=== PATIENT | male | born 1955 | race Caucasian/White ===

== ENCOUNTER 2019-12-18 11:08 | Inpatient (IN) | payer OTHER, MEDICARE ==
[2019-12-18 12:35] LABS: Absolute Lymphocytes (CBC) 1.4 K/uL (0.7-4.9); Basophils % 0.8 % (0-1.3); Hematocrit 17.3 % (39.6-49.0); Lymphocytes % 25.7 % (15.3-44.8); MPV 8.9 fL (7.6-11.3); RBC Red Blood Cell Count 1.71 M/uL (4.33-5.43)
[2019-12-18 12:37] LABS: Protime INR 0.94
[2019-12-18 12:44] LABS: Albumin 2.7 g/dL (3.4-5.0); Bilirubin Direct 0.1 mg/dL (0-0.2); Bilirubin Total 0.4 mg/dL (0.2-1.0); Potassium 3.9 mmol/L (3.5-5.1); Protein, Total 5.4 g/dL (6.4-8.2)
[2019-12-18] MEDS ORDERED: PANTOPRAZOLE 40 MG INJ ONE (13:07)
[2019-12-18] MEDS ORDERED: WATER FOR INJ,STERILE 20 ML ONE (13:08)
[2019-12-18] MEDS ORDERED: NA CHLORIDE 0.9% 250 ML ONE ×2 (13:08→22:43)
--- NOTE | 2019-12-18 13:09 | EDPHYS ---
Physician Documentation [facility] Name: Evan Cruz Age: 64 yrs Sex: Male : 1955 Arrival Date: 12/18/2019 Time: 11:10 Bed 15 Private MD: ED Physician Robert Baxter HPI: 12/17 12:55 This 64 yrs old Male presents to ER via Ambulatory with complaints of blood mich transfusion. 12:55 The patient presents to the emergency department with rectal bleeding, melena. Onset: mich The symptoms/episode began/occurred. Abdominal pain: none is appreciated. Modifying factors: The symptoms are alleviated by nothing, the symptoms are aggravated by nothing. weak, dizzy, black stools. Associated signs and symptoms: Pertinent positives: shortness of breath, near-syncope. Onset: The symptoms/episode began/occurred 1 week(s) ago. Severity of symptoms: At their worst the symptoms were moderate in the emergency department the symptoms are unchanged. The patient has not experienced similar symptoms in the past. Historical: - Allergies: 11:34 No Known Allergies; ca1 - Home Meds: 11:34 None [Active]; ca1 - PMHx: 11:34 None; ca1 - PSHx: 11:34 None; ca1 - Immunization history:: Adult Immunizations up to date. - Social history:: Smoking status: Patient denies any tobacco usage or history of. - Family history:: not pertinent. ROS: 12:55 Constitutional: Negative for fever, chills, and weight loss, ENT: Negative for injury, mich pain, and discharge, Neck: Negative for injury, pain, and swelling, Cardiovascular: Negative for chest pain, palpitations, and edema, Respiratory: Negative for shortness of breath, cough, wheezing, and pleuritic chest pain, Back: Negative for injury and pain, : Negative for injury, bleeding, discharge, and swelling, MS/Extremity: Negative for injury and deformity, Skin: Negative for injury, rash, and discoloration, Neuro: Negative for headache, weakness, numbness, tingling, and seizure, Psych: Negative for depression, anxiety, suicide ideation, homicidal ideation, and hallucinations, Allergy/Immunology: Negative for hives, rash, and allergies, Endocrine: Negative for neck swelling, polydipsia, polyuria, polyphagia, and marked weight changes, Hematologic/Lymphatic: Negative for swollen nodes, abnormal bleeding, and unusual bruising. 12:55 Eyes: Positive for pale conjunctiva. 12:55 Abdomen/GI: Positive for black/tarry stool. 12:55 Skin: Positive for pallor. 12:55 Neuro: Positive for syncope, weakness. Exam: 12:55 Constitutional: This is a well developed, well nourished patient who is awake, alert, mich and in no acute distress. Head/Face: Normocephalic, atraumatic. ENT: Nares patent. No nasal discharge, no septal abnormalities noted. Tympanic membranes are normal and external auditory canals are clear. Oropharynx with no redness, swelling, or masses, exudates, or evidence of obstruction, uvula midline. Mucous membranes moist. Neck: Trachea midline, no thyromegaly or masses palpated, and no cervical lymphadenopathy. Supple, full range of motion without nuchal rigidity, or vertebral point tenderness. No Meningismus. Chest/axilla: Normal chest wall appearance and motion. Nontender with no deformity. No lesions are appreciated. Cardiovascular: Regular rate and rhythm with a normal S1 and S2. No gallops, murmurs, or rubs. Normal PMI, no JVD. No pulse deficits. Respiratory: Lungs have equal breath sounds bilaterally, clear to auscultation and percussion. No rales, rhonchi or wheezes noted. No increased work of breathing, no retractions or nasal flaring. Back: No spinal tenderness. No costovertebral tenderness. Full range of motion. Male : Normal genitalia with no discharge or lesions. MS/ Extremity: Pulses equal, no cyanosis. Neurovascular intact. Full, normal range of motion. Neuro: Awake and alert, GCS 15, oriented to person, place, time, and situation. Cranial nerves II-XII grossly intact. Motor strength 5/5 in all extremities. Sensory grossly intact. Cerebellar exam normal. Normal gait. Psych: Awake, alert, with orientation to person, place and time. Behavior, mood, and affect are within normal limits. 12:55 Eyes: Conjunctiva: pale. 12:55 Cardiovascular: Rate: normal, Rhythm: regular, Pulses: no pulse deficits are appreciated, Heart sounds: normal, Edema: is not appreciated, JVD: is not appreciated. 12:55 Abdomen/GI: Inspection: abdomen appears normal, Bowel sounds: normal, Palpation: abdomen is soft and non-tender, Rectal exam: Prostate: normal, rectal tone normal, Stool: guaiac positive, black, hemorrhoid(s), are not appreciated, mass, is not appreciated, swelling, is not appreciated, tenderness, is not appreciated, fecal impaction, is not appreciated, Liver: no appreciated palpable abnormalities. Vital Signs: 11:30 BP 121 / 75; Pulse 89; Resp 17 S; Temp 98.5(TE); Pulse Ox 100% on R/A; Weight 91.63 kg ca1 (R); Height 6 ft. 0 in. (182.88 cm) (R); Pain 0/10; 12:15 BP 127 / 73; Pulse 86; Resp 15 S; Pulse Ox 98% on R/A; ca1 13:15 BP 120 / 72; Pulse 79; Resp 16 S; Pulse Ox 97% on R/A; ca1 14:20 BP 118 / 77; Pulse 79; Resp 15 S; Pulse Ox 100% on R/A; ca1 15:12 BP 116 / 71; Pulse 81; Resp 16 S; Pulse Ox 100% on R/A; ca1 16:18 BP 103 / 72; Pulse 75; Resp 15 S; Pulse Ox 100% on R/A; ca1 11:30 Body Mass Index 27.40 (91.63 kg, 182.88 cm) ca1 MDM: 11:21 Patient medically screened. mich 13:02 Differential diagnosis: gastritis, diverticulitis, hemorrhoids, hemorrhagic shock, mich varices. Data reviewed: vital signs, nurses notes, lab test result(s), EKG, radiologic studies, plain films. Data interpreted: telemetry monitor: rate is 89 beats/min, rhythm is regular, Pulse oximetry: on room air is 100 %. Test interpretation: by ED physician or midlevel provider: ECG, plain radiologic studies. Counseling: I had a detailed discussion with the patient and/or guardian regarding: the historical points, exam findings, and any diagnostic results supporting the discharge/admit diagnosis, the presence of at least one elevated blood pressure reading (>120/80) during this emergency department visit, lab results, radiology results, the need for further work-up and treatment in the hospital. Physician consultation: Fran Thomas MD and will see patient in inpatient room. ED course: dw dr thomas, will scope, admit to hospitalist, dr cedeno. 12/17 12:05 Order name: Basic Metabolic Panel; Complete Time: 12:50 [facility] 12/17 12:05 Order name: CBC with Diff; Complete Time: 12:50 [facility] 12/17 12:05 Order name: Hepatic Function; Complete Time: 12:50 ca1 12/17 12:05 Order name: Lipase; Complete Time: 12:50 [facility] 12/17 12:05 Order name: Type And Screen [facility] 12/17 12:05 Order name: Protime (+inr); Complete Time: 12:50 [facility] 12/17 12:05 Order name: Ptt, Activated; Complete Time: 12:50 [facility] 12/17 12:54 Order name: Iron Level [facility] 12/17 12:54 Order name: Retic Count [facility] 12/17 12:54 Order name: Folic Acid,Serum (folate) [facility] 12/17 12:54 Order name: TIBC [facility] 12/17 12:54 Order name: Ferritin [facility] 12/17 13:51 Order name: Packed RBC Leukored [facility] 12/17 14:13 Order name: ABO/RH no charge [facility] 12/17 12:05 Order name: IV Saline Lock; Complete Time: 12:05 [facility] 12/17 12:05 Order name: Labs collected and sent; Complete Time: 12:05 [facility] 12/17 12:05 Order name: EKG; Complete Time: 12:06 [facility] 12/17 12:05 Order name: EKG - Nurse/Tech; Complete Time: 12:05 [facility] 12/17 12:50 Order name: Transfuse; Complete Time: 16:21 [facility] 12/17 12:53 Order name: IV - Large Bore; Complete Time: 12:56 [facility] 12/17 15:29 Order name: COVID-19: admit iw Administered Medications: 13:00 Drug: ProTONIX 80 mg Route: IVP; Site: right antecubital; ca1 14:22 Follow up: Response: No adverse reaction ca1 13:27 Drug: ProTONIX 8 mg/hr Route: IV; Rate: 25 ml/hr; Site: left forearm; ca1 14:22 Follow up: Response: No adverse reaction; IV Status: Infusion continued upon admission ca1 Disposition: 12/18/19 13:08 Hospitalization ordered by Moncho Cedeno for Inpatient Admission. Preliminary diagnosis are Gastrointestinal hemorrhage, unspecified - upper, Anemia, unspecified, Weakness, Syncope and collapse - near. - Bed requested for Telemetry/MedSurg (Inpatient). - Status is Inpatient Admission. ca1 - Condition is Fair. - Problem is new. - Symptoms have improved. Signatures: Dispatcher [employer] EDMS Robert Baxter MD MD cha Thompson, [facility], SADE Calero RN ca1 Corrections: (The following items were deleted from the chart) 16:08 13:08 Hospitalization Ordered by Moncho Cedeno DO for Inpatient Admission. Preliminary ks diagnosis is Gastrointestinal hemorrhage, unspecified - upper; Anemia, unspecified; Weakness; Syncope and collapse - near. Bed requested for Telemetry/MedSurg (Inpatient). Status is Inpatient Admission. Condition is Fair. Problem is new. Symptoms have improved. [facility] 16:55 16:08 12/18/2019 13:08 Hospitalization Ordered by Moncho Cedeno DO for Inpatient ca1 Admission. Preliminary diagnosis is Gastrointestinal hemorrhage, unspecified - upper; Anemia, unspecified; Weakness; Syncope and collapse - near. Bed requested for Telemetry/MedSurg (Inpatient). Status is Inpatient Admission. Condition is Fair. Problem is new. Symptoms have improved. mt
--- NOTE | 2019-12-18 13:09 | ER ---
Nurse's Notes [facility] Name: Evan Cruz Age: 64 yrs Sex: Male : 1955 Arrival Date: 12/18/2019 Time: 11:10 Bed 15 Private MD: Diagnosis: Gastrointestinal hemorrhage, unspecified-upper;Anemia, unspecified;Weakness;Syncope and collapse-near Presentation: 12/17 11:30 Chief complaint: Patient states: Had blood work done about a week ago in [place]. My ca1 doctor says I have low blood levels and is supposed to see a GI doctor for black stools. On Wednesday, I felt chest pains, SOB with exertion and fatigue. Told my doctor and was instructed to come to the ER. At this time, no chest pains, but still very fatigued and easily winded. Reports constipation and black stools x 2 weeks. Coronavirus screen: Proceed with normal triage. Patient denies a cough. Patient denies shortness of breath or difficulty breathing. Patient denies measured and/or subjective temperature greater than 100.4F prior to today's visit. Patient denies travel on a cruise ship or to a country the [facility] currently lists as an affected area. Patient denies contact with known and/or suspected case of COVID-19. Ebola Screen: Patient negative for fever greater than or equal to 101.5 degrees Fahrenheit, and additional compatible Ebola Virus Disease symptoms Patient denies exposure to infectious person. Patient denies travel to an Ebola-affected area in the 21 days before illness onset. No symptoms or risks identified at this time. Initial Sepsis Screen: Does the patient meet any 2 criteria? No. Patient's initial sepsis screen is negative. Does the patient have a suspected source of infection? No. Patient's initial sepsis screen is negative. Risk Assessment: Do you want to hurt yourself or someone else? Patient reports no desire to harm self or others. Onset of symptoms was December 18, 2019. 11:30 Method Of Arrival: Ambulatory ca1 11:30 Acuity: RENU 3 ca1 Triage Assessment: 11:34 General: Appears in no apparent distress. comfortable, Behavior is calm, cooperative, ca1 appropriate for age. Pain: Denies pain. EENT: No signs and/or symptoms were reported regarding the EENT system. Neuro: Level of Consciousness is awake, alert, obeys commands, Oriented to person, place, time, situation. Cardiovascular: Heart tones S1 S2 present Capillary refill < 3 seconds Patient's skin is warm and dry. Respiratory: Airway is patent Respiratory effort is even, unlabored, Respiratory pattern is regular, symmetrical, Breath sounds are clear bilaterally. GI: Abdomen is flat, non-distended, Bowel sounds present X 4 quads. Abd is soft and non tender X 4 quads. Reports constipation, black stools. : No signs and/or symptoms were reported regarding the genitourinary system. Derm: Skin is intact, is healthy with good turgor, Skin is pink, warm \T\ dry. Musculoskeletal: Circulation, motion, and sensation intact. Capillary refill < 3 seconds. Historical: - Allergies: 11:34 No Known Allergies; ca1 - Home Meds: 11:34 None [Active]; ca1 - PMHx: 11:34 None; ca1 - PSHx: 11:34 None; ca1 - Immunization history:: Adult Immunizations up to date. - Social history:: Smoking status: Patient denies any tobacco usage or history of. - Family history:: not pertinent. Screenin:35 Abuse screen: Denies threats or abuse. Denies injuries from another. Nutritional ca1 screening: No deficits noted. Tuberculosis screening: No symptoms or risk factors identified. Fall Risk IV access (20 points). Assessment: 11:35 Reassessment: see triage notes. ca1 12:15 Reassessment: Patient appears in no apparent distress at this time. Patient and/or ca1 family updated on plan of care and expected duration. Pain level reassessed. Patient is alert, oriented x 3, equal unlabored respirations, skin warm/dry/pink. 13:15 Reassessment: Patient appears in no apparent distress at this time. Patient and/or ca1 family updated on plan of care and expected duration. Pain level reassessed. Patient is alert, oriented x 3, equal unlabored respirations, skin warm/dry/pink. 14:20 Reassessment: Patient appears in no apparent distress at this time. Patient and/or ca1 family updated on plan of care and expected duration. Pain level reassessed. Patient is alert, oriented x 3, equal unlabored respirations, skin warm/dry/pink. 15:12 Reassessment: Patient appears in no apparent distress at this time. Patient and/or ca1 family updated on plan of care and expected duration. Pain level reassessed. Patient is alert, oriented x 3, equal unlabored respirations, skin warm/dry/pink. 16:18 Reassessment: Patient appears in no apparent distress at this time. Patient and/or ca1 family updated on plan of care and expected duration. Pain level reassessed. Patient is alert, oriented x 3, equal unlabored respirations, skin warm/dry/pink. 16:18 Reassessment: Called for report. CN to assign pt to Floor RN. Will call back. ca1 Vital Signs: 11:30 BP 121 / 75; Pulse 89; Resp 17 S; Temp 98.5(TE); Pulse Ox 100% on R/A; Weight 91.63 kg ca1 (R); Height 6 ft. 0 in. (182.88 cm) (R); Pain 0/10; 12:15 BP 127 / 73; Pulse 86; Resp 15 S; Pulse Ox 98% on R/A; ca1 13:15 BP 120 / 72; Pulse 79; Resp 16 S; Pulse Ox 97% on R/A; ca1 14:20 BP 118 / 77; Pulse 79; Resp 15 S; Pulse Ox 100% on R/A; ca1 15:12 BP 116 / 71; Pulse 81; Resp 16 S; Pulse Ox 100% on R/A; ca1 16:18 BP 103 / 72; Pulse 75; Resp 15 S; Pulse Ox 100% on R/A; ca1 11:30 Body Mass Index 27.40 (91.63 kg, 182.88 cm) ca1 ED Course: 11:10 Patient arrived in ED. as 11:12 Robert Baxter MD is Attending Physician. [facility] 11:30 Galilea Mccall, SADE is Primary Nurse. ca1 11:33 Triage completed. ca1 11:34 Arm band placed on right wrist. ca1 11:35 Patient has correct armband on for positive identification. Placed in gown. Bed in low ca1 position. Call light in reach. Side rails up X 1. monitoring tech on. Pulse ox on. NIBP on. Warm blanket given. 11:57 No provider procedures requiring assistance completed. Initial lab(s) drawn, by me, ca1 held in ED. Inserted saline lock: 18 gauge in right antecubital area, using aseptic technique. Blood collected. 12:37 Notified ED physician of a critical lab result(s). hgb 5.5, hct 17.3. iw 13:07 Moncho Marti DO is Hospitalizing Provider. [facility] 13:20 Initial lab(s) drawn, Repeat lab(s) drawn. sent to lab. Inserted saline lock: 20 gauge ca1 in left forearm, using aseptic technique. Blood collected. 16:44 Patient admitted, IV remains in place. ca1 Administered Medications: 13:00 Drug: ProTONIX 80 mg Route: IVP; Site: right antecubital; ca1 14:22 Follow up: Response: No adverse reaction ca1 13:27 Drug: ProTONIX 8 mg/hr Route: IV; Rate: 25 ml/hr; Site: left forearm; ca1 14:22 Follow up: Response: No adverse reaction; IV Status: Infusion continued upon admission ca1 Medication: 13:31 Blood products: PRBCs X 1 unit given. Premedicated pt. Verified with another RN. ca1 Monitored pt at bedside. See transfusion record. Outcome: 13:08 Decision to Hospitalize by Provider. [facility] 16:44 Admitted to Med/surg accompanied by nurse, accompanied by tech, via wheelchair, room ca1 229, with chart, Other with blood Report called to SADE Cho 16:44 Condition: stable 16:44 Instructed on the need for admit. 16:55 Patient left the ED. ca1 Signatures: Robert Baxter MD MD cha Martinez, Amelia as Williams, Irene, SADE RN Galilea Mccall RN RN ca1
[2019-12-18] MEDS ORDERED: PANTOPRAZOLE INJ 80 MG in NA CHLORIDE 0.9% 250 ML IV ONE (13:15)
[2019-12-18 13:31] LABS: RBC Red Blood Cell Count 1.76 M/uL (4.33-5.43)
[2019-12-18 13:58] LABS: Ferritin 21.7 ng/mL (26-388); Folic Acid, (Folate) 8.9 ng/mL (3.1-17.5)
--- NOTE | 2019-12-18 14:44 | P.HP ---
Certification for Inpatient Patient admitted to: Inpatient With expected LOS: >2 Midnights Patient will require the following post-hospital care: None Practitioner: I am a practitioner with admitting privileges, knowledge of patient current condition, hospital course, and medical plan of care. Services: Services provided to patient in accordance with Admission requirements found in Title 42 Section 412.3 of the Code of Federal Regulations Patient History Date of Service: 12/18/19 Primary Care Provider: MELINDA Villa Reason for admission: Fatigue, melena History of Present Illness: 64-year-old male without major medical problems presented to the emergency room with increased fatigue and melena. Patient is originally from [facility]. Patient reports that he has been suffering from a left rotator cuff injury. He was getting anti-inflammatory medication for pain by his PCP. He has been using this to help control pain. He is in the area to [place] a beach house. Over the past several weeks patient had reported some melena. This is been getting worse. For the past several days melena has been noted. He also reports increased fatigue. He thought this was primarily related to him working outside. His condition has not improved. He came to the ER for further evaluation. Patient denies any nausea, vomiting, fever or chills. Patient denies any hematemesis. Patient denies any COVID positive symptoms or any relation to people with positive symptoms. Patient is practicing social distance seen. In the ER patient was evaluated. Hemoglobin was found to be 5.5. Sodium 140, potassium 3.9, BUN of 23, creatinine 0.93 with a GFR of 82. Glucose 90. Patient has been started on a Protonix drip. Patient is to get 3 units of packed red blood cells. Patient stable this time. Patient admitted for further evaluation and treatment. When I saw the patient ER, patient appears comfortable. Patient appears stable. Case discussed with GI-Dr. Forbes. Home medications list reviewed: Yes - Past Medical/Surgical History Diabetic: No -: Left rotator cuff injury Past Surgical History: Patient denies surgical history Psychosocial/ Personal History: Patient is originally from [place]. 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 - Family History Family History: Reviewed- Non-Contributory - Social History Smoking Status: Never smoker Alcohol use: Yes CD- Drugs: No Caffeine use: Yes Place of Residence: Home Review of Systems General: Weakness, Malaise, As per HPI Eyes: Unremarkable ENT: Unremarkable Respiratory: Unremarkable Cardiovascular: Light Headedness, As per HPI Gastrointestinal: Melena, As per HPI Musculoskeletal: Unremarkable Integumentary: Unremarkable Neurological: Unremarkable Lymphatics: Unremarkable Physical Examination - Physical Exam General: Alert, In no apparent distress, Oriented x3, Cooperative HEENT: Atraumatic, Normocephalic Neck: Supple Respiratory: Clear to auscultation bilaterally, Normal air movement Cardiovascular: Normal pulses, Regular rate/rhythm Gastrointestinal: Normal bowel sounds, Soft and benign, Non-distended, No ascites, No tenderness, No masses, No rebound, No guarding Musculoskeletal: No erythema, No tenderness, No warmth Integumentary: No tenderness/swelling, No erythema, No warmth, No cyanosis Neurological: Normal speech, Normal strength at 5/5 x4 extr, Normal tone, Normal affect - Studies Laboratory Data (last 24 hrs) 12/18/19 11:55: PT 11.1, INR 0.94, APTT 26.3 12/18/19 11:55: WBC 5.5, Hgb 5.5 L*, Hct 17.3 L*, Plt Count 251 12/18/19 11:55: Sodium 140, Potassium 3.9, BUN 23 H, Creatinine 0.93, Glucose 90 , Total Bilirubin 0.4, AST 14 L, ALT 18, Alkaline Phosphatase 35 L, Lipase 137 Assessment and Plan - Plan Impression: Fatigue, melena secondary to upper GI bleed with acute anemia likely related to overmedication with NSAIDs Plan: Fatigue, melena secondary to upper GI bleed with acute anemia likely related to overmedication with NSAIDs: Patient will be admitted for further evaluation and treatment. Case discussed at length with GI. GI recommends to continue blood transfusion. Patient will receive 3 units of blood to maintain hemoglobin above 8.0. Once hemoglobin stable he will proceed with EGD for further evaluation. Will continue with IV Protonix drip. Patient appears stable at this time. Will also continue with IV fluids. DVT prophylaxis will be SCD. Await findings of EGD. Will monitor close lab closely. Will also test for COVID. Anticipate improvement over the next 48 hr. Discharge Plan: Home Plan to discharge in: 48 Hours - Advance Directives Does patient have a Living Will: No Does patient have a Durable POA for Healthcare: No - Code Status/Comfort Care Code Status Assessed: Yes (Patient is full code) Time Spent Managing Pts Care (In Minutes): 55
[2019-12-18] MEDS ORDERED: ACETAMINOPHEN 325 MG TABLET ONE (15:31)
[2019-12-18] MEDS ORDERED: DIPHENHYDRAMINE 50 MG/ML VIAL ONE (15:32)
[2019-12-18] MEDS ORDERED: ACETAMINOPHEN 500 MG TAB PO PRN (17:04)
[2019-12-18] MEDS ORDERED: ONDANSETRON 4 MG/2 ML VIAL IV PRN (17:04)
[2019-12-18] MEDS ORDERED: ACETAMINOPHEN 650MG/RECT SUPP PR PRN (17:04)
[2019-12-18 17:28] VITALS: BMI 27.3
[2019-12-18] MEDS: CEFTRIAXONE/SWI 1gm 1 GM/10 ML SYR IVP SCH (18:09)
[2019-12-18] MEDS: NA CHLORIDE 0.9% 1,000 ML IV SCH (18:09)
[2019-12-18] MEDS ORDERED: FUROSEMIDE 20 MG/ 2ML VIAL IV ONE (19:29)
[2019-12-18] MEDS: PANTOPRAZOLE INJ 80 MG in NA CHLORIDE 0.9% 250 ML IV SCH (20:21)
[2019-12-18] MEDS ORDERED: PNEUMOCOCCAL VACCINE 0.5 ML IMVAC ONE (21:00)
[2019-12-19] MEDS ORDERED: FUROSEMIDE 20 MG/ 2ML VIAL IV ONE ×2 (02:06→13:37)
[2019-12-19] MEDS: NA CHLORIDE 0.9% 1,000 ML IV SCH ×3 (03:04→16:16)
[2019-12-19 04:18] LABS: Basophils % 1.1 % (0-1.3); Hematocrit 24.5 % (39.6-49.0); Lymphocytes % 22.7 % (15.3-44.8); MPV 8.5 fL (7.6-11.3); RBC Red Blood Cell Count 2.55 M/uL (4.33-5.43)
[2019-12-19] MEDS: PANTOPRAZOLE INJ 80 MG in NA CHLORIDE 0.9% 250 ML IV SCH ×2 (04:45→14:15)
[2019-12-19 04:46] LABS: Magnesium 2.4 mg/dL (1.8-2.4); Potassium 3.7 mmol/L (3.5-5.1); Thyroid Stimulating Hormone 1.99 uIU/mL (0.360-3.740)
[2019-12-19] MEDS ORDERED: KCL 20 MEQ/100 mL IVPB 20 MEQ/100 ML BAG IV SCH (05:00)
[2019-12-19] MEDS: CEFTRIAXONE/SWI 1gm 1 GM/10 ML SYR IVP SCH (08:32)
--- NOTE | 2019-12-19 10:58 | EKG ---
Test Date: 2019-12-18 Test Time: 11:46:56 Physician Allergist Immunologist: DESMOND MEASUREMENT RESULTS: Intervals: Rate: 88 MD: 122 QRSD: 86 QT: 380 QTc: 459 [place]: P: 59 MD: 122 QRS: 48 T: 35 INTERPRETIVE STATEMENTS: Normal sinus rhythm Normal ECG No previous ECG available for comparison Electronically Signed On 12-19-19 10:54:13 CDT by Edu Lockhart
[2019-12-19 12:29] LABS: Hematocrit 24.3 % (39.6-49.0)
[2019-12-19] MEDS ORDERED: NA CHLORIDE 0.9% 250 ML ONE (13:55)
--- NOTE | 2019-12-19 16:09 | P.PN ---
Subjective Date of Service: 12/19/19 Primary Care Provider: MELINDA Villa Chief Complaint: Fatigue, melena Subjective: Improving (Still with melena) Physical Examination - Vital Signs Temperature: 98.4 F Blood Pressure: 112/68 Pulse: 76 Respirations: 17 Pulse Ox (%): 100 - Physical Exam General: Alert, Cooperative HEENT: Atraumatic Neck: Supple Respiratory: Clear to auscultation bilaterally Cardiovascular: Normal pulses Gastrointestinal: No tenderness, No masses, No rebound, No guarding Neurological: Normal speech, Normal strength at 5/5 x4 extr, Normal tone, Normal affect - Studies Medications List Reviewed: Yes Assessment & Plan Discharge Plan: Home Plan to discharge in: 48 Hours Physician Review Additional Text: Impression: Fatigue, melena secondary to upper GI bleed with acute anemia likely related to overmedication with NSAIDs Plan: Fatigue, melena secondary to upper GI bleed with acute anemia likely related to overmedication with NSAIDs: Patient has received 2 units of packed red blood cells. Hemoglobin slightly below 8. Still with melena. Will give another unit of blood. Still waiting on COVID testing results. GI to pursue EGD once this has been finalized. Continue IV Protonix drip. Will start clears at this time. Anticipate improvement over the next 48 hr. Time Spent Managing Pts Care (In Minutes): 55
[2019-12-19 18:06] LABS: Hematocrit 29.4 % (39.6-49.0)
[2019-12-20] MEDS: PANTOPRAZOLE INJ 80 MG in NA CHLORIDE 0.9% 250 ML IV SCH ×2 (00:39→10:00)
[2019-12-20] MEDS: NA CHLORIDE 0.9% 1,000 ML IV SCH ×2 (00:39→07:40)
[2019-12-20 06:01] LABS: Absolute Lymphocytes (CBC) 0.9 K/uL (0.7-4.9); Basophils % 0.9 % (0-1.3); Hematocrit 26.8 % (39.6-49.0); Lymphocytes % 17.8 % (15.3-44.8); MPV 8.8 fL (7.6-11.3); RBC Red Blood Cell Count 2.82 M/uL (4.33-5.43)
[2019-12-20 06:08] LABS: BUN Blood Urea Nitrogen 12 mg/dL (7-18); Bicarbonate 22 mmol/L (21-32); Glucose Level 90 mg/dL (74-106); Magnesium 2.4 mg/dL (1.8-2.4); Potassium 3.8 mmol/L (3.5-5.1); Sodium Level 141 mmol/L (136-145)
[2019-12-20] MEDS: CEFTRIAXONE/SWI 1gm 1 GM/10 ML SYR IVP SCH (07:40)
[2019-12-20] MEDS ORDERED: propofoL 200 MG/20 ML VIAL IV ONE (12:03)
[2019-12-20] MEDS ORDERED: LIDOCAINE 1% MPF 5 ML VIAL ONE (12:03)
[2019-12-20 12:46] VITALS: O2SAT 98
--- NOTE | 2019-12-20 12:51 | ENDO RPT ---
[address], [address] EGD PROCEDURE REPORT EXAM DATE: 12/20/2019 PATIENT NAME: Evan Cruz MR#: [id number] BIRTHDATE: 1955 ATTENDING: Fran Forbes Dr STATUS: inpatient - 7 [employer] OPERATOR: Monica Lomax RN and Crystal Mckenzie RN INDICATIONS: The patient is a 64 yr old Male here for an EGD due to melenic bleeding and iron deficiency anemia PROCEDURE PERFORMED: EGD with biopsy MEDICATIONS: Per Anesthesia. TOPICAL ANESTHETIC: none CONSENT: The patient understands the risks and benefits of the procedure and understands that these risks include, but are not limited to: sedation, allergic reaction, infection, perforation and/or bleeding. Alternative means of evaluation and treatment include, among others: physical exam, x-rays, and/or surgical intervention. The patient elects to proceed with this endoscopic procedure. DESCRIPTION OF PROCEDURE: During intra-op preparation period all mechanical medical equipment was checked for proper function. Hand hygiene and appropriate measures for infection prevention was taken. Procedure, possible complications, and alternatives including but not limited to the possibility of bleeding, perforation, tear, infection, sepsis, need for surgery, need for blood transfusion, and anesthesia related complications were explained to the patient. After the risks, benefits and alternatives of the procedure were thoroughly explained, Informed consent was verified, confirmed and timeout was successfully executed by the treatment team. The patient was placed in the left lateral position. The patient was anesthetized with topical anesthesia. Through the anesthetized oropharyngeal area, the scope was passed without any difficulty. The [id number] ([id number]) endoscope was introduced through the mouth and advanced to the second portion of the duodenum. Retroflexed views revealed a small hiatal hernia. The gastroscope was then slowly withdrawn and removed. A small hiatal hernia was found Mild gastritis was found in the antrum. Multiple biopsies were obtained and sent to pathology. Duodenitis was found in the bulb of the duodenum. A 5 mm clean-based ulcer with crater was found in the apex of the bulb of the duodenum. No active bleeding nor old blood identified. ADVERSE EVENTS: There were no complications. IMPRESSIONS: 1. Small hiatal hernia 2. Mild gastritis in the antrum, s/p biopsies 3. Duodenitis in the bulb of the duodenum 4. 5 mm clean-based ulcer with crater in the apex of the bulb of the duodenum RECOMMENDATIONS: 1. await biopsy results 2. acid suppression therapy REPEAT EXAM: Fran Forbes Dr eSigned: Fran Forbes Dr 12/20/2019 12:50 PM cc: Moncho Marti CPT CODES: ICD9 CODES: PATIENT NAME: Evan CruzTamra MR#: [id number]
[2019-12-20 12:54] VITALS: BP 104/78; TEMP 97.8
--- NOTE | 2019-12-20 13:45 | P.DS ---
Admission Date: 12/18/19 Discharge Date: 12/20/19 Primary Care Provider: Allen [place] Disposition: ROUTINE DISCHARGE Discharge Condition: GOOD Reason for Admission: Fatigue, melena Consultations: GI-Dr. Anna Procedures: EGD: Impression: 1. Small hiatal hernia 2. Mild gastritis in the antrum status post biopsies 3. Duodenitis in the bulb of the duodenum 4. 5 mm clean based ulcer with crater in the apex of the bulb of the duodenum Medical Problem List: Fatigue, melena secondary to upper GI bleed with acute anemia with noted iron deficiency status post EGD showing small hiatal hernia, gastritis, duodenitis and 5 mm clean based ulcer in the apex of the bulb of the duodenum likely related to overmedication from NSAIDs Left shoulder pain likely rotator cuff injury Brief History of Present Illness: 64-year-old male without major medical problems presented to the emergency room with increased fatigue and melena. Patient is originally from [facility]. Patient reports that he has been suffering from a left rotator cuff injury. He was getting anti-inflammatory medication for pain by his PCP. He has been using this to help control pain. He is in the area to [place] a beach house. Over the past several weeks patient had reported some melena. This is been getting worse. For the past several days melena has been noted. He also reports increased fatigue. He thought this was primarily related to him working outside. His condition has not improved. He came to the ER for further evaluation. Patient denies any nausea, vomiting, fever or chills. Patient denies any hematemesis. Patient denies any COVID positive symptoms or any relation to people with positive symptoms. Patient is practicing social distance seen. In the ER patient was evaluated. Hemoglobin was found to be 5.5. Sodium 140, potassium 3.9, BUN of 23, creatinine 0.93 with a GFR of 82. Glucose 90. Patient has been started on a Protonix drip. Patient is to get 3 units of packed red blood cells. Patient stable this time. Patient admitted for further evaluation and treatment. When I saw the patient ER, patient appears comfortable. Patient appears stable. Case discussed with GI-Dr. Forbes. Hospital Course: Patient presented with fatigue and melena. Patient had been medicated with anti-inflammatories for left shoulder pain likely rotator cuff injury. During this time patient reported increase melena. Patient is visiting in the area to help renovate a home. Patient was evaluated in the emergency room. Patient found to be acutely anemic. Patient required transfusion. During the course of his stay patient received 3 units of packed red blood cells. Hemoglobin now stable. GI was consulted. GI performed EGD showing small hiatal hernia, mild gastritis in the antrum, duodenitis in the bulb of the duodenum and 5 mm clean based ulcer with crater in the apex of the bulb of the duodenum. No bleeding noted. Patient has done well. Patient able the tolerate his diet. No abdominal pain noted. At discharge GI recommends to start Prilosec 40 mg 1 pill twice daily. Patient will return home to [place]. Recommend to follow up with GI for further evaluation. Patient may require repeat EGD in the near future. Recommend no further use of nonsteroidal anti-inflammatories. As for his left shoulder pain. Patient likely with rotator cuff injury. Recommend for the patient to obtain an MRI of his shoulder to further evaluate from his PCP. Then patient can see orthopedics as an outpatient to further address. Patient will likely require surgery in the future. Patient may take Tylenol as needed for pain. A limited supply of Tramadol 50 mg 1 pill twice daily as needed for pain will be provided. Patient with acute anemia related to above. Patient found to have iron deficiency anemia. At discharge he will continue with iron supplementation 325 mg 1 pill twice daily. Recommend to recheck lab-CBC in 2-4 weeks to monitors progress. Patient was tested for COVID 19. He was negative. Patient to continue with social distancing, mask and hand washing. CDC guidelines will be provided. Vital Signs/Physical Exam: Temp Pulse Resp BP Pulse Ox 97.8 F 83 16 104/78 97 12/20/19 12:53 12/20/19 12:53 12/20/19 12:53 12/20/19 12:53 12/20/19 12:00 General: Alert, In no apparent distress, Oriented x3, Cooperative HEENT: Atraumatic Neck: Supple Respiratory: Clear to auscultation bilaterally, Normal air movement Cardiovascular: Normal pulses, Regular rate/rhythm Gastrointestinal: Normal bowel sounds, Soft and benign, Non-distended, No tenderness, No masses, No rebound, No guarding Musculoskeletal: No erythema, No tenderness, No warmth Integumentary: No tenderness/swelling, No erythema, No warmth, No cyanosis Neurological: Normal speech, Normal strength at 5/5 x4 extr, Normal tone, Normal affect Laboratory Data at Discharge: WBC 4.9 K/uL (4.3-10.9) 12/20/19 05:27 Hgb 8.6 g/dL (13.6-17.9) L 12/20/19 05:27 Hct 26.8 % (39.6-49.0) L 12/20/19 05:27 Plt Count 271 K/uL (152-406) 12/20/19 05:27 PT 11.1 SECONDS (9.5-12.5) 12/18/19 11:55 INR 0.94 12/18/19 11:55 APTT 26.3 SECONDS (24.3-36.9) 12/18/19 11:55 Sodium 141 mmol/L (136-145) 12/20/19 05:27 Potassium 3.8 mmol/L (3.5-5.1) 12/20/19 05:27 BUN 12 mg/dL (7-18) 12/20/19 05:27 Creatinine 0.85 mg/dL (0.55-1.3) 12/20/19 05:27 Glucose 90 mg/dL (74-106) 12/20/19 05:27 Magnesium 2.4 mg/dL (1.8-2.4) 12/20/19 05:27 Total Bilirubin 0.4 mg/dL (0.2-1.0) 12/18/19 11:55 AST 14 U/L (15-37) L 12/18/19 11:55 ALT 18 U/L (12-78) 12/18/19 11:55 Alkaline Phosphatase 35 U/L (45-117) L 12/18/19 11:55 Lipase 137 U/L (73-393) 12/18/19 11:55 Home Medications: Ferrous Sulfate [Iron] 325 mg PO BID #60 tablet 12/20/19 Omeprazole [Prilosec] 40 mg PO BID 30 Days #60 capsule. 12/20/19 Tramadol HCl [Ultram] 50 mg PO BID PRN #30 tablet 12/20/19 New Medications: Ferrous Sulfate [Iron] 325 mg PO BID #60 tablet Omeprazole [Prilosec] 40 mg PO BID 30 Days #60 capsule.dr Tramadol HCl [Ultram] 50 mg PO BID PRN #30 tablet PRN Reason: Pain Scale 2-4 (Mild) Patient Discharge Instructions: 1. Recommend follow up with PCP in [place] within 1 week to follow up this hospitalization. 2. Patient presented with fatigue and melena. Patient had been medicated with anti-inflammatories for left shoulder pain likely rotator cuff injury. During this time patient reported increase melena. Patient is visiting in the area to help renovate a home. Patient was evaluated in the emergency room. Patient found to be acutely anemic. Patient required transfusion. During the course of his stay patient received 3 units of packed red blood cells. Hemoglobin now stable. GI was consulted. GI performed EGD showing small hiatal hernia, mild gastritis in the antrum, duodenitis in the bulb of the duodenum and 5 mm clean based ulcer with crater in the apex of the bulb of the duodenum. No bleeding noted. Patient has done well. Patient able the tolerate his diet. No abdominal pain noted. At discharge GI recommends to start Prilosec 40 mg 1 pill twice daily. Patient will return home to [place]. Recommend to follow up with GI for further evaluation. Patient may require repeat EGD in the near future. Recommend no further use of nonsteroidal anti-inflammatories. 3. As for his left shoulder pain. Patient likely with rotator cuff injury. Recommend for the patient to obtain an MRI of his shoulder to further evaluate from his PCP. Then patient can see orthopedics as an outpatient to further address. Patient will likely r equire surgery in the future. Patient may take Tylenol as needed for pain. A limited supply of Tramadol 50 mg 1 pill twice daily as needed for pain will be provided. 4. Patient with acute anemia related to above. Patient found to have iron deficiency anemia. At discharge he will continue with iron supplementation 325 mg 1 pill twice daily. Recommend to recheck lab-CBC in 2-4 weeks to monitors progress. 5. Patient was tested for COVID 19. He was negative. Patient to continue with social distancing, mask and hand washing. CDC guidelines will be provided. Diet: GI soft then advance to low-fiber diet Activity: Ad ty Time spent managing pt's care (in minutes): 55
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
== END 2019-12-20 15:20 | disposition home or self-care (01) | DRG 917 ==
LOC: ER 11:08 → ERHOLD 13:58 → 2ND 16:48
PROVIDERS: ADMIT Family Medicine; ATTEND Family Medicine
PROC: 0DB68ZX Excision of Stomach, Via Natural or Artificial Opening Endoscopic, Diagnostic (ICD-10-PCS; principal; 2019-12-20 12:00)
DX: T39.391A Poisoning by other nonsteroidal anti-inflammatory drugs [NSAID], accidental (unintentional), initial encounter (principal); K29.71 Gastritis, unspecified, with bleeding; K29.81 Duodenitis with bleeding; K26.4 Chronic or unspecified duodenal ulcer with hemorrhage; D50.9 Iron deficiency anemia, unspecified; K44.9 Diaphragmatic hernia without obstruction or gangrene; S46.002A Unspecified injury of muscle(s) and tendon(s) of the rotator cuff of left shoulder, initial encounter; Z20.828 Contact with and (suspected) exposure to other viral communicable diseases; Z28.21 Immunization not carried out because of patient refusal; Z11.59 Encounter for screening for other viral diseases
CPT/HCPCS: 36415; 36430; 80048; 80076; 82728; 82746; 83540; 83690; 83735; 84439; 84443; 84466; 85014; 85018; 85025; 85044; 85610; 85730; 86850; 86900; 86901; 87040; 88305; 88312; 93005; 96365; 99285; C9113; J0696; J1200; J1940; J2704; J3480; J7030; J7050; P9016; U0002